=== PATIENT | female | born 1950 | race Caucasian/White ===

== ENCOUNTER 2024-05-10 17:43 | Inpatient (IN) | payer OTHER, MEDICAID ==
[~2024-05-10] VITALS: Ht 162.6 cm; Wt 78.6 kg
[2024-05-10 17:43] VITALS: BP_SYST 127; PULSE 72; RESP 18; TEMP 97.3; O2SAT 98
[2024-05-10 18:23] LABS: BASOPHILS # (AUTO) 0.2 K/uL (0.0-0.2); BASOPHILS % (AUTO) 2.1 % (0.0-2.0); EOSINOPHILS # (AUTO) 0.4 K/uL (0.0-0.4); EOSINOPHILS % (AUTO) 5.3 % (0.0-4.0); HEMATOCRIT 44.2 % (36-48); HEMOGLOBIN 14.8 g/dL (12.0-16.0); LYMPHOCYTES # (AUTO) 2.1 K/uL (1.0-5.5); LYMPHOCYTES % (AUTO) 26.8 % (20.5-51.5); MEAN CORPUSCULAR HEMOGLOBIN 31 pg (27-31); MEAN CORPUSCULAR HGB CONC 34 % (32-36); MEAN CORPUSCULAR VOLUME 93 fL (79.0-98.0); MONOCYTES # (AUTO) 0.5 K/uL (0.0-1.0); MONOCYTES % (AUTO) 6.1 % (1.7-9.3); NEUTROPHILS # (AUTO) 4.6 K/uL (1.8-7.7); NEUTROPHILS % (AUTO) 59.7 % (40.0-70.0); PLATELET COUNT (AUTO) 171 K/uL (130-430); RED BLOOD CELL COUNT(AUTO) 4.73 MIL/uL (4.2-6.2); WHITE BLOOD COUNT (AUTO) 7.8 K/uL (4.8-10.8)
[2024-05-10 18:41] LABS: ANION GAP 6 (5-15); CALCIUM 9.1 mg/dL (8.4-11.0); CARBON DIOXIDE 30 mmol/L (23-29); CHLORIDE 99 mmol/L (98-107); CREATININE 1.15 mg/dL (0.55-1.30); GLUCOSE 203 mg/dL (74-106); POTASSIUM 4.2 mmol/L (3.5-5.1); SODIUM SERUM 135 mmol/L (136-145); UREA NITROGEN, BLOOD 26 mg/dL (8-21)
[2024-05-10 18:56] LABS: ALBUMIN 3.9 g/dL (3.4-4.8); BILIRUBIN,DIRECT 0.3 mg/dL (0.0-0.3); TOTAL PROTEIN, SERUM 7.2 g/dL (6.4-8.3)
[2024-05-10] MEDS ORDERED: NITROGLYCERIN 1 INCH (GM) OINT. ONE (19:37)
[2024-05-10] MEDS: NITROGLYCERIN 1 INCH (GM) OINT. TP ONE (19:58)
[2024-05-10] MEDS ORDERED: VENL37.58 PO (21:16)
[2024-05-10] MEDS ORDERED: ASPI-1393 PO (21:16)
[2024-05-10] MEDS ORDERED: TELM80TA2 PO (21:16)
[2024-05-10] MEDS ORDERED: SSNOVOLOG SUBCUT (21:16)
[2024-05-10] MEDS ORDERED: SPIR25TA6 PO (21:16)
[2024-05-10] MEDS ORDERED: EMPA25TA PO (21:16)
[2024-05-10] MEDS ORDERED: EZET-84 PO (21:16)
[2024-05-10] MEDS ORDERED: HYDR-3698 PO (21:16)
[2024-05-10] MEDS ORDERED: CARV12.548 PO (21:16)
[2024-05-10] MEDS ORDERED: RIVA10TA PO (21:16)
[2024-05-10] MEDS ORDERED: METF-379 PO (21:16)
[2024-05-10] MEDS ORDERED: TEMAZEPAM 15 MG CAPSULE PO PRN (22:45)
[2024-05-10] MEDS ORDERED: ACETAMINOPHEN 325 MG TABLET PO PRN ×2 (22:45)
[2024-05-10] MEDS ORDERED: cloNIDine HCL 0.1 MG TABLET PO PRN (22:45)
[2024-05-10 23:07] VITALS: BP_SYST 103; PULSE 69; RESP 18; TEMP 97.4
[2024-05-10] MEDS ORDERED: NITROGLYCERIN 1 INCH (GM) OINT. TP ONE (23:30)
[2024-05-11 00:01] VITALS: BP_SYST 114; PULSE 71; RESP 18; TEMP 97.9; O2SAT 98
[2024-05-11] MEDS: RIVAROXABAN 10 MG TABLET PO SCH (00:41)
[2024-05-11 05:37] LABS: BILIRUBIN,URINE NEGATIVE (NEGATIVE); BLOOD, URINE NEGATIVE (NEGATIVE); COLOR,URINE YELLOW (YELLOW); GLUCOSE,URINE 2+ (NEGATIVE); KETONES,URINE NEGATIVE (NEGATIVE); LEUKOCYTE ESTERASE ,URINE 1+ (NEGATIVE); NITRITE, URINE POSITIVE (NEGATIVE); PROTEIN URINE NEGATIVE (NEGATIVE); UROBILINOGEN,URINE 0.2 (0.2-1.0)
[2024-05-11 05:46] LABS: CLARITY/URINE CLOUDY (CLEAR)
[2024-05-11 05:57] LABS: BACTERIA,URINE MANY /HPF (None Seen); RBC,URINE 0-3 /HPF (0-3); WBC,URINE 20-50 /HPF (0-3)
[2024-05-11 06:23] LABS: PROTHROMBIN TIME 10.9 SECS (9.5-12.5)
[2024-05-11 06:24] LABS: BASOPHILS # (AUTO) 0.2 K/uL (0.0-0.2); BASOPHILS % (AUTO) 1.9 % (0.0-2.0); EOSINOPHILS # (AUTO) 0.4 K/uL (0.0-0.4); EOSINOPHILS % (AUTO) 5.4 % (0.0-4.0); HEMATOCRIT 44.1 % (36-48); LYMPHOCYTES # (AUTO) 2.4 K/uL (1.0-5.5); LYMPHOCYTES % (AUTO) 30.1 % (20.5-51.5); MEAN CORPUSCULAR HEMOGLOBIN 32 pg (27-31); MEAN CORPUSCULAR HGB CONC 34 % (32-36); MEAN CORPUSCULAR VOLUME 93 fL (79.0-98.0); MONOCYTES # (AUTO) 0.5 K/uL (0.0-1.0); MONOCYTES % (AUTO) 6.5 % (1.7-9.3); NEUTROPHILS # (AUTO) 4.5 K/uL (1.8-7.7); NEUTROPHILS % (AUTO) 56.1 % (40.0-70.0); PLATELET COUNT (AUTO) 170 K/uL (130-430); RED BLOOD CELL COUNT(AUTO) 4.76 MIL/uL (4.2-6.2); RED CELL DISTRIBUTION WIDTH 13.1 % (9.0-15.0)
[2024-05-11 07:01] LABS: ALANINE AMINOTRANSFERASE 15 U/L (12-78); ALBUMIN 3.8 g/dL (3.4-4.8); ANION GAP 9 (5-15); ASPARTATE AMINOTRANSFERASE 19 U/L (10-37); CALCIUM 9.3 mg/dL (8.4-11.0); CARBON DIOXIDE 29 mmol/L (23-29); CHLORIDE 101 mmol/L (98-107); CHOLESTEROL 101 mg/dL (<200); CREATININE 1.08 mg/dL (0.55-1.30); FREE T4 (FREE THYROXINE) 1.1 ng/dL (0.6-1.6); GLUCOSE 180 mg/dL (74-106); HDL CHOLESTEROL 38 mg/dL (>55); POTASSIUM 4.1 mmol/L (3.5-5.1); SODIUM SERUM 139 mmol/L (136-145); THYROID STIMULATING HORMONE 1.43 uIu/mL (0.34-4.82); TOTAL PROTEIN, SERUM 7.1 g/dL (6.4-8.3); TRIGLYCERIDES 132 mg/dL (30-150); UREA NITROGEN, BLOOD 20 mg/dL (8-21)
[2024-05-11 08:00] VITALS: BP_SYST 121; PULSE 73; RESP 18; TEMP 97.9; O2SAT 98
[2024-05-11] MEDS: ASPIRIN 81 MG TABLET(ECOTRIN) PO SCH (08:43)
[2024-05-11] MEDS: CARVEDILOL 12.5 MG TABLET (COREG) PO SCH (08:43)
[2024-05-11] MEDS: LOSARTAN POTASSIUM 50 MG TABLET (COZAAR) PO SCH (08:43)
[2024-05-11] MEDS: CLOPIDOGREL BISULFATE 75 MG TABLET PO SCH (08:43)
[2024-05-11] MEDS: SPIRONOLACTONE 25 MG TABLET (ALDACTONE) PO SCH (08:44)
[2024-05-11] MEDS: metFORMIN HCL 500 MG TABLET PO SCH (08:44)
[2024-05-11] MEDS ORDERED: TELMISARTAN 80 MG TABLET PO SCH (09:00)
[2024-05-11] MEDS ORDERED: ROSUVASTATIN CALCIUM 5 MG/TAB (CRESTOR) PO SCH (09:00)
[2024-05-11] MEDS: EMPAGLIFLOZIN 10 MG TABLET PO SCH (09:57)
[2024-05-11] MEDS: ATORVASTATIN 20 MG TABLET PO SCH (09:58)
[2024-05-11] MEDS: Effexor XR 37.5 MG PO SCH (09:59)
[2024-05-11 12:00] VITALS: BP_SYST 115; PULSE 67; RESP 18; TEMP 97.9; O2SAT 97
[2024-05-11] MEDS ORDERED: DEXTROSE 50% JECT 50 ML DISP.SYRIN IVP PRN (13:00)
[2024-05-11 16:00] VITALS: BP_SYST 100; PULSE 64; RESP 18; TEMP 97.2; O2SAT 98
[2024-05-11] MEDS: INSULIN REGULAR, HUMAN 100 UNITS/ML, 3 ML VIAL (humuLIN R) SUBCUT PRN (16:58)
[2024-05-11] MEDS: cefTRIAXone 1 GM in D5W 50 ML IV SCH (17:58)
[2024-05-11 20:28] VITALS: BP_SYST 109; PULSE 68; RESP 20; TEMP 98
[2024-05-12 01:50] VITALS: BP_SYST 109; PULSE 72; RESP 18; TEMP 97.7
[2024-05-12 08:00] VITALS: BP_SYST 92; PULSE 71; RESP 18; TEMP 96.9; O2SAT 96; O2SAT 99
[2024-05-12 08:06] LABS: THYROID STIMULATING HORMONE 1.18 uIu/mL (0.36-3.74)
[2024-05-12] MEDS ORDERED: NITR-85 PO (11:33)
[2024-05-12 13:12] VITALS: BP_SYST 90; PULSE 65; RESP 18; TEMP 97.4; O2SAT 97
[2024-05-12 14:12] VITALS: BP_SYST 93; PULSE 66; RESP 18; TEMP 97.8; O2SAT 97
[2024-05-15 13:07] LABS: QUANTIFERON TB GOLD Negative (Negative)
== END 2024-05-12 14:25 | disposition home or self-care (01) | DRG 313 ==
LOC: SED 17:43 → STU 21:12
PROVIDERS: ADMIT Internal Medicine; ATTEND Internal Medicine
DX: R07.89 Other chest pain (principal); E87.1 Hypo-osmolality and hyponatremia; N39.0 Urinary tract infection, site not specified; I10 Essential (primary) hypertension; E78.5 Hyperlipidemia, unspecified; E11.51 Type 2 diabetes mellitus with diabetic peripheral angiopathy without gangrene; I25.10 Atherosclerotic heart disease of native coronary artery without angina pectoris; Z63.4 Disappearance and death of family member; Z82.49 Family history of ischemic heart disease and other diseases of the circulatory system; Z87.891 Personal history of nicotine dependence; Z90.710 Acquired absence of both cervix and uterus
CPT/HCPCS: 36415; 70450-TC; 70490; 71045; 71250-TC; 80048; 80053; 80061; 80076; 81000; 81001; 81015; 82948; 83037; 83735; 83880; 84439; 84443; 84484; 85025; 85610; 85730; 86480; 87086; 87186; 93005; 93306; 99285; G0378; J0696; J7060